=== PATIENT | female | born 1945 | race Caucasian/White ===

== ENCOUNTER 2017-08-07 20:02 | Emergency (ER) | payer OTHER ==
[~2017-08-07] VITALS: Ht 154.9 cm; Wt 102.5 kg
--- NOTE | 2017-08-07 22:56 | ED NECK/BACK PAIN COMPLAINT ---
History of Present Illness General Chief Complaint: Lower Extremity Problems Stated Complaint: PT IS HAVING LOWER BACK PAIN Source: patient, family, old records Exam Limitations: no limitations Vital Signs & Intake/Output Vital Signs & Intake/Output Vital Signs Date Time Temp Pulse Resp B/P B/P Pulse O2 O2 Flow FiO2 Mean Ox Delivery Rate 08/07 2345 Room Air 08/07 2012 98.3 90 20 152/87 96 Room Air ED Intake and Output 08/08 0000 08/07 1200 Intake Total Output Total Balance Patient 226 lb Weight Allergies Coded Allergies: No Known Allergies (10/04/15) Triage Note: PT TO TRIAGE WITH MULTIPLE COMPLAINTS. PT C/O L FLANK PAIN, STATES HX OF KIDNEY DISEASE BUT DENIES DIALYSIS. PT WITH +BELCHING IN TRIAGE. DENIES URINARY S/SX. LAST BM TODAY, NORMAL PER PT. PT STATES JUST STARTED ON MAG CITRATE APPROX 1 WEEK AGO FOR LEG CRAMPING. DENIES N/V. Triage Nurses Notes Reviewed? yes HPI: Patient presents with left flank pain that started earlier this afternoon. The pain is aching in nature. There is no radiation. The pain decreases when she belches. There is no nausea or vomiting. No constipation or diarrhea. There is no dysuria or hematuria. There is no chest pain or shortness of breath. There is no tissue insertion. There is no orthopnea. Patient had similar symptoms Saturday evening but she was finally able to fall asleep and when she woke up on Saturday morning there on. Patient has had a normal appetite. Past History Travel History Traveled to [place] past 21 day No Medical History Any Pertinent Medical History? see below for history Neurological: NONE EENT: NONE Cardiovascular: hyperlipidemia Respiratory: NONE Gastrointestinal: GERD Hepatic: NONE Renal: chronic kidney disease Musculoskeletal: NONE Psychiatric: NONE Endocrine: PRE-DIABETIC Blood Disorders: NONE Cancer(s): NONE EMERGENCY MAN/Reproductive: NONE Surgical History Surgical History: cholecystectomy, knee replacement Psychosocial History What is your primary language Tajik Tobacco Use: Never used ETOH Use: denies use Illicit Drug Use: denies illicit drug use Family History Hx Contributory? No Review of Systems Review of Systems Constitutional: Reports: no symptoms. Eyes: Reports: no symptoms. Ears, Nose, Throat, Mouth: Reports: no symptoms. Respiratory: Reports: no symptoms. Cardiovascular: Reports: no symptoms. Gastrointestinal/Abdominal: Reports: see HPI (BELCHING). Musculoskeletal: Reports: see HPI, back pain. Skin: Reports: no symptoms. Neurological/Psychological: Reports: no symptoms. All Other Systems: Reviewed and Negative Physical Exam Physical Exam General Appearance: well developed/nourished, alert, awake, anxious, mild distress Head: atraumatic Eyes: Bilateral: PERRL, EOMI. Ears, Nose, Throat, Mouth: hearing grossly normal, moist mucous membrane Neck: normal inspection, supple, full range of motion Respiratory: normal breath sounds, chest non-tender, no respiratory distress, lungs clear Cardiovascular: regular rate/rhythm, normal peripheral pulses Gastrointestinal: normal bowel sounds, soft, non-tender Back: normal inspection, CVA tenderness (L) Extremities: normal range of motion Straight Leg Raising: Right: Negative. Left: Negative. Neurologic/Psych: awake, alert, oriented x 3, normal mood/affect Skin: intact, normal color, warm/dry Core Measures CVA/TIA Diagnosis: No Progress Differential Diagnosis: herniated disc, myofascial strain Plan of Care: Orders Procedure Date/time Status Add-on Test (ER Only) 08/07 2341 Active CULTURE,URINE 08/07 2025 Active URINALYSIS 08/07 2025 Complete COMPREHENSIVE METABOLIC PANEL 08/07 2025 Complete CBC WITHOUT DIFFERENTIAL 08/07 2025 Complete Laboratory Tests 08/07/17 2255: Anion Gap 19 H, Estimated GFR 18 L, BUN/Creatinine Ratio 8.1, Glucose 142 H, Calcium 10.0, Total Bilirubin 0.9, AST 16, ALT 20, Alkaline Phosphatase 126, Total Protein 9.0 H, Albumin 5.1 H, Globulin 3.9, Albumin/Globulin Ratio 1.3, CBC w Diff NO MAN DIFF REQ, RBC 5.93 H, MCV 88.3, MCH 28.1, MCHC 31.8 L, RDW 15.0 H, MPV 8.2, Gran % 84.1 H, Lymphocytes % 11.5 L, Monocytes % 0.6 L, Eosinophils % 3.7, Basophils % 0.1, Absolute Granulocytes 11.5 H, Absolute Lymphocytes 1.6, Absolute Monocytes 0.1, Absolute Eosinophils 0.5, Absolute Basophils 0 08/07/17 2240: Urine Color YEL, Urine Clarity CLEAR, Urine pH 6.0, Ur Specific [place] >= 1.030 , Urine Protein 100 H, Urine Ketones NEG, Urine Nitrite NEG, Urine Bilirubin NEG, Urine Urobilinogen 0.2, Ur Leukocyte Esterase SMALL H, Ur Microscopic SEDIMENT EXAMINED, Urine RBC 15-25 H, Urine WBC 10-15 H, Ur Epithelial Cells MOD H, Urine Bacteria MANY H, Micro UA Comment BUDDING YEAST H, Urine Hemoglobin LARGE H, Urine Glucose NEG Microbiology 08/07 2025 URINE ROUT: Urine Culture - RECD Diagnostic Imaging: Viewed by Me: CT Scan. Discussed w/RAD: CT Scan. Radiology Impression: PATIENT: RAINA DACOSTA PRESENT AGE: 72 PATIENT ACCOUNT NO: [id number] : 45 LOCATION: [facility] ORDERING PHYSICIAN: Federico Eubanks MD SERVICE DATE: 08/07/17 EXAM TYPE: CAT - CT ABD & PELVIS W/O IV CONTRAS EXAMINATION: CT ABDOMEN AND PELVIS WITHOUT CONTRAST CLINICAL INFORMATION: Left flank pain COMPARISON: None TECHNIQUE: Multidetector volumetric imaging was performed from the superior aspect of the liver through the pubic symphysis. Sagittal and coronal reformatted images were obtained on the technologist's workstation. DLP: 933 mGy-cm FINDINGS: LUNG BASES : Minimal basilar atelectasis. Dense coronary artery calcifications. 1.2 x 0.5 cm lymph node along the anterior epicardial fat. LIVER, GALLBLADDER, AND BILIARY TREE: The liver is normal in size, shape, and attenuation. No focal hepatic lesion or biliary ductal dilatation is present. Cholecystectomy. PANCREAS: Unremarkable. SPLEEN: Unremarkable. ADRENAL GLANDS: Unremarkable. KIDNEYS AND URETERS: The kidneys are normal in size, shape, and attenuation. Mild left hydroureteronephrosis. The ureter is followed along its course and there are no definite calculi seen. No right hydronephrosis. Mild asymmetric left perinephric stranding. BLADDER: Decompressed with possible layering calculus within the bladder lumen measuring 0.3 cm, series 3 image 633. GASTROINTESTINAL TRACT: The stomach is unremarkable. The small bowel is normal in caliber. No obstruction. There is prominent diverticulosis of the sigmoid colon. No diverticulitis. No free air or free fluid. Normal appendix. ABDOMINAL WALL: No significant hernia is appreciated. LYMPH NODES: Prominent periportal and peripancreatic lymph nodes are seen. For instance, there is a node adjacent to the pancreatic neck which measures 1.5 x 1.3 cm, series 2 image 25. There is a portacaval node measuring 2.4 x 0.8 cm on series 2 image 28. VASCULAR: Normal caliber aorta with moderate atherosclerotic calcifications. PELVIC VISCERA: There is a hypoattenuating 2.6 cm lesion extending posteriorly from the uterine body, suggestive of a fibroid. No adnexal mass. OSSEOUS STRUCTURES: No acute or suspicious osseous abnormality. Multilevel degenerative changes of the spine. Mild degenerative changes on the hips. IMPRESSION: Mild left hydroureteronephrosis. There are no obstructing calculi seen. Small calculus noted layering within the bladder lumen, suggestive of a recently passed stone from the ureter. Mildly prominent lymph nodes in the periportal region are nonspecific. DICTATED BY: Lan Nunn MD DATE/TIME DICTATED:08/08/1716 NURSES DIRECTOR:ROSAS DATE/TIME TRANSCRIBED:16 CONFIDENTIAL, DO NOT COPY WITHOUT APPROPRIATE AUTHORIZATION. < Electronically signed in Other Vendor System> SIGNED BY: Lan Nunn MD 08/08/17 0026 Comments: Pain suddenly went away and patient is asymptomatic. Lab results and CAT scan findings have been discussed with the patient. Patient will call her urologist in the morning. Departure Departure Disposition: HOME OR SELF CARE Condition: Stable Clinical Impression Primary Impression: Kidney stone on left side Referrals: Uma Dimas MD (PCP/Family) Additional Instructions: FOLLOW UP WITH YOUR UROLOGIST RETURN IF SYMPTOMS WORSEN OR FOR ANY CONCERNS Departure Forms: Customer Survey General Discharge Information
[2017-08-07 23:11] LABS: ABSOLUTE BASOPHIL COUNT 0 /CUMM (0.0-0.2); ABSOLUTE EOSINOPHIL COUNT 0.5 /CUMM (0.0-0.7); ABSOLUTE GRANULOCYTE CT 11.5 /CUMM (1.4-6.5); ABSOLUTE LYMPH COUNT 1.6 /CUMM (1.2-3.4); ABSOLUTE MONOCYTE COUNT 0.1 /CUMM (0.10-0.60); BASOPHIL % 0.1 % (0.0-2.0); EOSINOPHIL % 3.7 % (0-5); HEMATOCRIT 52.4 % (37-47); MEAN CORPUSCULAR HGB 28.1 PG (27.0-31.0); MEAN CORPUSCULAR HGB CONC 31.8 G/DL (33.0-37.0); MEAN CORPUSCULAR VOLUME 88.3 FL (81.0-99.0); MEAN PLATELET VOLUME 8.2 FL (7.4-10.4); PLATELET COUNT 233 /CUMM (130-400); RED BLOOD CELL CT 5.93 /CUMM (4.20-5.40); WHITE BLOOD CELL COUNT 13.6 /CUMM (4.8-10.8)
[2017-08-07 23:29] LABS: GRANULOCYTE % 84.1 % (42.2-75.2)
--- NOTE | 2017-08-08 00:26 | CT SCAN REPORT ---
EXAMINATION: CT ABDOMEN AND PELVIS WITHOUT CONTRAST CLINICAL INFORMATION: Left flank pain COMPARISON: None TECHNIQUE: Multidetector volumetric imaging was performed from the superior aspect of the liver through the pubic symphysis. Sagittal and coronal reformatted images were obtained on the technologist's workstation. DLP: 933 mGy-cm FINDINGS: LUNG BASES: Minimal basilar atelectasis. Dense coronary artery calcifications. 1.2 x 0.5 cm lymph node along the anterior epicardial fat. LIVER, GALLBLADDER, AND BILIARY TREE: The liver is normal in size, shape, and attenuation. No focal hepatic lesion or biliary ductal dilatation is present. Cholecystectomy. PANCREAS: Unremarkable. SPLEEN: Unremarkable. ADRENAL GLANDS: Unremarkable. KIDNEYS AND URETERS: The kidneys are normal in size, shape, and attenuation. Mild left hydroureteronephrosis. The ureter is followed along its course and there are no definite calculi seen. No right hydronephrosis. Mild asymmetric left perinephric stranding. BLADDER: Decompressed with possible layering calculus within the bladder lumen measuring 0.3 cm, series 3 image 633. GASTROINTESTINAL TRACT: The stomach is unremarkable. The small bowel is normal in caliber. No obstruction. There is prominent diverticulosis of the sigmoid colon. No diverticulitis. No free air or free fluid. Normal appendix. ABDOMINAL WALL: No significant hernia is appreciated. LYMPH NODES: Prominent periportal and peripancreatic lymph nodes are seen. For instance, there is a node adjacent to the pancreatic neck which measures 1.5 x 1.3 cm, series 2 image 25. There is a portacaval node measuring 2.4 x 0.8 cm on series 2 image 28. VASCULAR: Normal caliber aorta with moderate atherosclerotic calcifications. PELVIC VISCERA: There is a hypoattenuating 2.6 cm lesion extending posteriorly from the uterine body, suggestive of a fibroid. No adnexal mass. OSSEOUS STRUCTURES: No acute or suspicious osseous abnormality. Multilevel degenerative changes of the spine. Mild degenerative changes on the hips. IMPRESSION: Mild left hydroureteronephrosis. There are no obstructing calculi seen. Small calculus noted layering within the bladder lumen, suggestive of a recently passed stone from the ureter. Mildly prominent lymph nodes in the periportal region are nonspecific.
[2017-08-08 01:12] VITALS: BP 154/73
== END 2017-08-08 01:15 ==
LOC: ERH 20:02
PROVIDERS: Physician Assistant Medical
DX: N20.0 Calculus of kidney (principal)
CPT/HCPCS: 74176; 81001; 87086